=== PATIENT | female | born 1935 | race Caucasian/White ===

== ENCOUNTER → 2016-12-30 | Outpatient (CLI) | payer OTHER ==
[~2016-12-30] MED LIST: ASPCH81X PO; CHOL100010 PO; FSM70 PO; GALA12TA PO; MEMA10TA PO; OMEP20CA9 PO; SERT1TAB71 PO; SERT25TA PO; TYL325X PO
[2016-12-30 08:18] LABS: BASO % 0.7 %; BASO ABS # 0.04 K/uL (0-0.2); COMPLETE YES; EOS % 3.6 %; HEMATOCRIT 36.7 % (37-47); IG% 0.2 %; LYMPH % 34.3 %; LYMPH ABS # 1.89 K/uL (1.2-3.4); MEAN CORPUSCULAR HEMOGLOBIN 29.3 pg (25-34); MEAN CORPUSCULAR HGB CONC 33.2 g/dl (32-36); MEAN PLATELET VOLUME 9.4 fL (7.4-10.4); MONO % 10.3 %; NEUT % 50.9 %; PLATELET COUNT 192 K/uL (130-400); RED BLOOD COUNT 4.17 M/uL (4.2-5.4); WHITE BLOOD COUNT 5.51 K/uL (4.8-10.8)
[2016-12-30 08:27] LABS: BLOOD UREA NITROGEN 21 mg/dl (7-18); BUN/CREATININE RATIO 24.7 (10-20); CALCIUM 8.8 mg/dl (8.5-10.1); CARBON DIOXIDE 29 mmol/L (21-32); CHLORIDE 109 mmol/L (98-107); CREATININE 0.85 mg/dl (0.60-1.20); GLUCOSE 91 mg/dl (70-99); POTASSIUM 3.6 mmol/L (3.5-5.1); SODIUM 144 mmol/L (136-145)
[2016-12-30 08:38] LABS: ALB/GLOB RATIO 0.9 (0.9-2); ALKALINE PHOSPHATASE 105 U/L (45-117); ALT/SGPT 16 U/L (12-78); AST/SGOT 13 U/L (15-37); CHOLESTEROL 149 mg/dl (0-200); CHOLESTEROL/HDL RATIO 2.1; HDL CHOLESTEROL 70 mg/dl; LDL CHOLESTEROL CALCULATED 68 mg/dl; TRIGLYCERIDES 56 mg/dl (0-150); VERY LOW DENSITY LIPOPROT CALC 11 mg/dl
== END | disposition home or self-care (01) ==
LOC: C.LABWYN 08:04
PROVIDERS: ATTEND Internal Medicine Pulmonary Disease
DX: M15.9 Polyosteoarthritis, unspecified (principal)

== ENCOUNTER 2017-01-30 14:50 | Emergency (ER) | payer OTHER ==
[~2017-01-30] VITALS: Ht 154.9 cm; Wt 60.6 kg
[2017-01-30 14:55] VITALS: TEMP 36.5; Ht 154.9 cm; Wt 60.6 kg
[2017-01-30] MEDS ORDERED: ALEN70TA4 PO (15:24)
--- NOTE | 2017-01-30 15:28 | EMERGENCY ROOM VISIT NOTE ---
History Report prepared by Louise: Jarad Roy Under the Supervision of: Graham StevensO. First contact with patient: 15:10 Chief Complaint: OTHER COMPLAINT Stated Complaint: SENT BY JASON JULISSA,UTERUS DROPPED History of Present Illness The patient is a 81 year old female who presents to the Emergency Room with complaints of a possible prolapsed uterus occurring approximately around 45 minutes prior to arrival. The patient is not complaining of any abdominal pain, though she is having some lower back pain. The patient has never had anything like this before, and she has a history of dementia. She has not had a hysterectomy. The patient's family states that the patient has not recently seen any SCIENCE AND OPERATIONS OFFICER doctor. The patient's son additionally states that the patient "digs" at herself and is wondering if she did anything to pull it out. Source of History: patient, family Onset: 45 minutes prior to arrival Position: other (vagina) Quality: other (uterus prolapse) Timing: other (possible) Associated Symptoms: + back pain, No abdominal pain Review of Systems See HPI for pertinent positives & negatives. A total of 6 systems reviewed and were otherwise negative. Past Medical & Surgical Medical Problems: (1) Arthritis of elbow, left (2) HTN (hypertension) Family History FH: heart disease Hypertension Social History Smoking Status: Never Smoker Alcohol Use: occasionally Drug Use: none Marital Status: Housing Status: lives alone Occupation Status: retired Current/Historical Medications Scheduled Alendronate Sodium (Fosamax), 70 MG PO WK Aspirin (Aspirin Ec), 81 MG PO DAILY Celecoxib (Celebrex), 100 MG PO BID Cholecalciferol (Vitamin D), 1,000 UNITS PO DAILY Donepezil HCl (Donepezil HCl), 5 MG PO PM Memantine (Namenda), 10 MG PO BID Omeprazole (Prilosec), 20 MG PO DAILY Sertraline (Zoloft), 25 MG PO PM Sertraline (Zoloft), 50 MG PO PM Scheduled PRN Acetaminophen Tab (Tylenol), 650 MG PO Q4 PRN for Pain or Fever Hydrocortisone (Rectal) (Hydrocortisone), 1 APPLN TOP BID PRN for rash Polyethylene Glycol 3350 (Miralax), 17 GM PO DAILY PRN for Constipation Allergies Coded Allergies: No Known Allergies (Verified , 12/31/12) Physical Exam Vital Signs Date Time Temp Pulse Resp B/P (MAP) Pulse Ox O2 Delivery O2 Flow Rate FiO2 01/30/17 17:46 68 18 128/68 95 01/30/17 17:15 68 18 128/65 95 Room Air 01/30/17 14:55 36.5 64 20 120/87 99 Room Air Physical Exam GENERAL: Patient is awake, alert, and in no acute distress. Patient is resting comfortably and showing no signs of anxiety EYES: The conjunctivae are clear. The pupils are round and reactive. EARS, NOSE, MOUTH AND THROAT: The nose is without any evidence of any deformity. Mucous membranes are moist tongue is midline NECK: The neck is nontender and supple. RESPIRATORY: Normal respiratory effort is noted there is no evidence of wheezing rhonchi or rales CARDIOVASCULAR: Regular rate and rhythm noted there no murmurs rubs or gallops normal S1 normal S2 GASTROINTESTINAL: The abdomen is soft. Bowel sounds are present in all quadrants. Abdomen is nontender : External genitalia are normal in appearance. No prolapse noted. On digital exam, slight cystocele, no definite prolapsed uterus noted. MUSCULOSKELETAL/EXTREMITIES: There is no evidence of gross deformity full range of motion is noted in the hips and shoulders SKIN: There is no obvious evidence of any rash. There are no petechiae, pallor or cyanosis noted. NEUROLOGIC: Patient is at baseline according to family members. Medical Decision & Procedures ED Course 1510: The patient was evaluated in room C11. A complete history and physical examination were performed. 1612: I discussed the patient's case with Dr. Hardy, SCIENCE AND OPERATIONS OFFICER, and she recommends outpatient follow up. 1625: Upon reevaluation, the patient is doing well. I discussed the results and treatment plan with her and her family. They verbalized agreement of the treatment plan. She was discharged home. Medical Decision Nursing notes reviewed. Additional history is obtained from the patient's family members. The patient is a 81-year-old female who presented to the emergency department with family members for an evaluation of possible vaginal or uterine prolapse. The patient lives in a residential and has a history of dementia. On physical exam she may have a small cystocele but no definite prolapse was noted. I discussed his case with the on-call SCIENCE AND OPERATIONS OFFICER physician. They've agreed to evaluate the patient in the office for further management and disposition. I discussed this plan with the family members and they were agreeable. They were encouraged to send the patient back to the emergency department if symptoms change worsen or the need arises. There was also some concern about the possibility of foreign body. To the best of my ability I could not appreciate a foreign body. Medication Reconcilliation Current Medication List: was personally reviewed by me Blood Pressure Screening Patient's blood pressure: Normal blood pressure Consults Time Called: 1542 Consulting Physician: Dr. Hardy, SCIENCE AND OPERATIONS OFFICER Returned Call: 1612 I discussed the patient's case with Dr. Hardy, SCIENCE AND OPERATIONS OFFICER, and she recommends outpatient follow up. Impression Primary Impression: Cystocele Scribe Attestation The scribe's documentation has been prepared under my direction and personally reviewed by me in its entirety. I confirm that the note above accurately reflects all work, treatment, procedures, and medical decision making performed by me. Departure Information Dispostion Home / Self-Care Referrals [facility] (PCP) Forms HOME CARE DOCUMENTATION FORM, IMPORTANT VISIT INFORMATION, WORK / SCHOOL INSTRUCTIONS Patient Instructions Cystocele, My [facility] Additional Instructions Follow-up with the SCIENCE AND OPERATIONS OFFICER doctor as scheduled. Problem Qualifiers Primary Impression: Cystocele Cystocele location: midline Qualified Codes: N81.11 - Cystocele, midline
[2017-01-30] MEDS ORDERED: ARC5 PO (15:29)
[2017-01-30] MEDS ORDERED: SERT50TA PO (15:29)
[2017-01-30] MEDS ORDERED: NMN10 PO (15:29)
[2017-01-30] MEDS ORDERED: PRLSR20 PO (15:29)
[2017-01-30] MEDS ORDERED: SERT25TA PO (15:29)
[2017-01-30] MEDS ORDERED: CHOL100010 PO (15:29)
[2017-01-30] MEDS ORDERED: ASPI81TA28 PO (15:29)
[2017-01-30] MEDS ORDERED: POLY335019 PO (15:33)
[2017-01-30] MEDS ORDERED: ACET325T96 PO (15:33)
[2017-01-30] MEDS ORDERED: HYDR-4956 TOP (15:33)
[2017-01-30] MEDS ORDERED: CELE100C PO (15:33)
[2017-01-30 17:46] VITALS: BP 128/68; PULSE 68; O2SAT 95
== END 2017-01-30 17:47 | disposition home or self-care (01) ==
LOC: C.EDB 14:51 → C.EDC 17:47
DX: N81.11 Cystocele, midline (principal); I10 Essential (primary) hypertension; Z82.49 Family history of ischemic heart disease and other diseases of the circulatory system; Z79.82 Long term (current) use of aspirin

== ENCOUNTER 2017-03-08 20:15 | Inpatient (IN) | payer OTHER ==
[~2017-03-08] VITALS: Ht 157.5 cm; Wt 60.7 kg
[~2017-03-08 20:15] MED LIST changes: +ACET325T96 PO; +ALEN70TA4 PO; +ARC5 PO; -ASPCH81X PO; +ASPI81TA28 PO; +CELE100C PO; -FSM70 PO; -GALA12TA PO; +HYDR-4956 TOP; -MEMA10TA PO; +NMN10 PO; -OMEP20CA9 PO; +POLY335019 PO; +PRLSR20 PO; -SERT1TAB71 PO; +SERT50TA PO; -TYL325X PO
[2017-03-08] MEDS ORDERED: SERT-234 PO (20:43)
[2017-03-08] MEDS ORDERED: ACETAMINOPHEN 325 MG SUPP PR STA (20:45)
[2017-03-08] MEDS ORDERED: SODIUM CHLORIDE 0.9% 1000ML 1,000 ML IV STA (20:45)
--- NOTE | 2017-03-08 20:51 | EMERGENCY ROOM VISIT NOTE ---
History Report prepared by Louise: Melisa Guzman Under the Supervision of: Dr. Fern Felipe D.O. First contact with patient: 20:30 Chief Complaint: OTHER COMPLAINT Stated Complaint: NOT EATING,TWITCHING,UNSTABLE WALKING,NONRESPONSIV History of Present Illness The patient is a 81 year old female who presents to the Emergency Room with complaints of generalized illness beginning this morning. Per son, the patient has stage five dementia. The patient was seen in the ED three weeks ago for a prolapsed uterus and bladder. The patient followed up with a PCP who put a pessary in. The patient soon after pulled the pessary out which was replaced again easily. The patient lives in a multimedia technician care living facility. The facility called the patient's son today and told him the patient was not acting normally. Per son, the patient was not eating, coughing, and has been shaking which is not baseline for her. The patient is unable to control her bowels or bladder but is able to alert someone to take her to the bathroom. Per son, the patient urinated on herself prior to arrival which is not normal for her. He notes that her urine also smelled strange. History limited secondary to the patient's dementia. Source of History: family History Limited By: dementia Onset: this morning Position: other (generalized) Quality: other (illness) Review of Systems ROS limited secondary to patient's dementia. Past Medical & Surgical Medical Problems: (1) Altered mental status (2) Arthritis of elbow, left (3) Fever (4) HTN (hypertension) (5) Sepsis (6) Urinary tract infection Family History FH: heart disease Hypertension Social History Smoking Status: Never Smoker Alcohol Use: occasionally Drug Use: none Marital Status: Housing Status: lives alone Occupation Status: retired Current/Historical Medications Scheduled Alendronate Sodium (Fosamax), 70 MG PO WK Aspirin (Aspirin Ec), 81 MG PO DAILY Celecoxib (Celebrex), 100 MG PO BID Cholecalciferol (Vitamin D), 1,000 UNITS PO DAILY Donepezil HCl (Donepezil HCl), 5 MG PO PM Memantine (Namenda), 10 MG PO BID Omeprazole (Prilosec), 20 MG PO DAILY Sertraline (Zoloft), 25 MG PO PM Sertraline (Zoloft), 100 MG PO DAILY Scheduled PRN Acetaminophen Tab (Tylenol), 650 MG PO Q4 PRN for Pain or Fever Hydrocortisone (Rectal) (Hydrocortisone), 1 APPLN TOP BID PRN for rash Polyethylene Glycol 3350 (Miralax), 17 GM PO DAILY PRN for Constipation Allergies Coded Allergies: Oxycodone (Unverified Adverse Reaction, Severe, CONFUSION, 03/08/17) Physical Exam Vital Signs Date Time Temp Pulse Resp B/P (MAP) Pulse Ox O2 Delivery O2 Flow Rate FiO2 03/08/17 22:52 36.7 92 16 101/70 98 Room Air 03/08/17 21:24 98 Room Air 03/08/17 20:38 129/59 03/08/17 20:25 38.7 117 18 95 Room Air Physical Exam GENERAL: alert, frail, elderly appearing, confused, warm to touch. EYE EXAM: normal conjunctiva, PERRL and EOM's grossly intact OROPHARYNX: no exudate, no erythema, lips, buccal mucosa, and tongue normal and mucous membranes are moist NECK: supple, no nuchal rigidity, no adenopathy, non-tender LUNGS: Diminished breath sound bilaterally. HEART: Tachycardiac, no murmurs, S1 normal and S2 normal ABDOMEN: generalized discomfort with palpation, no rebound or guarding. BACK: Back is symmetrical on inspection and there is no deformity, no midline tenderness, no CVA tenderness. SKIN: no rashes and no bruising UPPER EXTREMITIES: upper extremities are grossly normal. LOWER EXTREMITIES: No pitting edema. NEURO EXAM: Moving all extremities, alert demented, unable to cooperate for further testing. Medical Decision & Procedures ER Provider Diagnostic Interpretation: Radiology results have been interpreted by the radiologist and reviewed by me. CT SCAN OF THE BRAIN WITHOUT IV CONTRAST FINDINGS: Brain parenchyma: There are age-related involutional changes noting mild subcortical and periventricular microangiopathic change. There is asymmetric atrophy of the temporal lobes. There is no hemorrhage, mass effect, or evidence of acute territorial ischemia by CT criteria. Thomas-white matter is preserved. No extra-axial fluid collection is seen. Ventricles, sulci, cisterns: Prominent secondary to involutional change. Cavum septum pellucidum is incidentally noted. Intracranial vasculature: There is atherosclerotic calcification of the cavernous carotid arteries. Calvarium: Unremarkable. Sinuses and mastoids: The visualized paranasal sinuses are clear. The mastoid air cells are well pneumatized. Orbits: The bony orbits are grossly intact. There are bilateral ocular lens implants. IMPRESSION: 1. Significantly motion compromised examination. 2. Senescent changes as above with no evidence of hemorrhage, mass effect, or acute territorial ischemia by CT criteria. Electronically signed by: Herbert Ramirez M.D. AP CHEST WITH ABDOMINAL SERIES FINDINGS: 2 AP chest radiographs are compared to study dated 01/18/2015. The examination is degraded by patient rotation and by the patient's head obscuring the apices. The heart is top normal for projection and there is atherosclerotic calcification of the thoracic aorta. There are low lung volumes. Patchy airspace consolidation is seen in the left lower lung. No large pleural effusion or pneumothorax is identified. The skeletal structures are osteopenic. Advanced degenerative change and scoliosis is identified in the thoracolumbar spine. Advanced arthritic change is also seen in the shoulders. Supine and erect abdominal radiographs are correlated with abdominal CT dated 02/22/2012. Cholecystectomy clips are noted in the right upper quadrant. There is a nonobstructed abdominal bowel gas pattern. Moderate colonic fecal retention is noted. There is excreted IV contrast the bladder. No evidence of intraperitoneal free air is seen. Atherosclerotic calcification is noted in the abdominal aorta. There are no abnormal abdominal calcifications. There is advanced lumbosacral spondylosis and scoliosis. The lumbosacral spine and bony pelvis are grossly intact. IMPRESSION: 1. Low lung volumes. 2. Patchy airspace consolidation is seen at the left lung base. Correlate clinically for evidence of pneumonia/aspiration pneumonitis. Radiographic follow-up to resolution is recommended. 3. Nonobstructed abdominal bowel gas pattern. Electronically signed by: Herbert Ramirez M.D. Laboratory Results 03/08/17 21:12 Red Blood Count 4.03, Mean Corpuscular Volume 90.6, Mean Corpuscular Hemoglobin 30.0, Mean Corpuscular Hemoglobin Concent 33.2, Mean Platelet Volume 9.6, Neutrophils (%) (Auto) 82.3, Lymphocytes (%) (Auto) 6.9, Monocytes (%) (Auto) 10.4, Eosinophils (%) (Auto) 0.1, Basophils (%) (Auto) 0.0, Neutrophils # (Auto ) 9.13, Lymphocytes # (Auto) 0.76, Monocytes # (Auto) 1.15, Eosinophils # (Auto ) 0.01, Basophils # (Auto) 0.00 03/08/17 21:12 Test 03/08/17 21:04 03/08/17 21:12 03/08/17 21:20 Influenza Type A Antigen Neg for Influ A (NEG) Influenza Type B Antigen Neg for Influ B (NEG) White Blood Count 11.08 K/uL (4.8-10.8) Red Blood Count 4.03 M/uL (4.2-5.4) Hemoglobin 12.1 g/dL (12.0-16.0) Hematocrit 36.5 % (37-47) Mean Corpuscular Volume 90.6 fL (80-100) Mean Corpuscular Hemoglobin 30.0 pg (25-34) Mean Corpuscular Hemoglobin Concent 33.2 g/dl (32-36) Platelet Count 216 K/uL (130-400) Mean Platelet Volume 9.6 fL (7.4-10.4) Neutrophils (%) (Auto) 82.3 % Lymphocytes (%) (Auto) 6.9 % Monocytes (%) (Auto) 10.4 % Eosinophils (%) (Auto) 0.1 % Basophils (%) (Auto) 0.0 % Neutrophils # (Auto) 9.13 K/uL (1.4-6.5) Lymphocytes # (Auto) 0.76 K/uL (1.2-3.4) Monocytes # (Auto) 1.15 K/uL (0.11-0.59) Eosinophils # (Auto) 0.01 K/uL (0-0.5) Basophils # (Auto) 0.00 K/uL (0-0.2) RDW Standard Deviation 48.2 fL (36.4-46.3) RDW Coefficient of Variation 14.6 % (11.5-14.5) Immature Granulocyte % (Auto) 0.3 % Immature Granulocyte # (Auto) 0.03 K/uL (0.00-0.02) Anion Gap 8.0 mmol/L (3-11) Estimated GFR () 55.3 Estimated GFR (Non- 47.7 BUN/Creatinine Ratio 18.8 (10-20) Lactic Acid Level 1.1 mmol/L (0.4-2.0) Calcium Level 9.0 mg/dl (8.5-10.1) Total Bilirubin 0.6 mg/dl (0.2-1) Direct Bilirubin 0.2 mg/dl (0-0.2) Aspartate Amino Transf (AST/SGOT) 13 U/L (15-37) Alanine Aminotransferase (ALT/SGPT) 15 U/L (12-78) Alkaline Phosphatase 115 U/L (45-117) Total Protein 7.4 gm/dl (6.4-8.2) Albumin 3.2 gm/dl (3.4-5.0) Urine Color YELLOW Urine Appearance CLOUDY (CLEAR) Urine pH 6.5 (4.5-7.5) Urine Specific [place] 1.014 (1.000-1.030) Urine Protein 1+ (NEG) Urine Glucose (UA) NEG (NEG) Urine Ketones NEG (NEG) Urine Occult Blood 1+ (NEG) Urine Nitrite POS (NEG) Urine Bilirubin NEG (NEG) Urine Urobilinogen POS (NEG) Urine Leukocyte Esterase LARGE (NEG) Urine WBC (Auto) >30 /hpf (0-5) Urine RBC (Auto) 0-4 /hpf (0-4) Urine Hyaline Casts (Auto) 1-5 /lpf (0-5) Urine Epithelial Cells (Auto) 0-5 /lpf (0-5) Urine Bacteria (Auto) 2+ (NEG) Laboratory results per my review. Medications Administered Medications (Trade) Dose Ordered Sig/Bryan Route Start Time Stop Time Status Last Admin Dose Admin Sodium Chloride 1,000 ml @ 999 mls/hr Q1H1M STAT IV 03/08/17 20:45 03/08/17 21:45 VA 03/08/17 20:45 999 MLS/HR Acetaminophen (Tylenol Supp) 975 mg NOW STAT TN 03/08/17 20:45 03/08/17 20:48 DC 03/08/17 20:45 975 MG Vancomycin HCl 1500 mg/Sodium Chloride 530 ml @ 200 mls/hr ONE STAT IV 03/08/17 21:52 03/09/17 01:05 VA 03/08/17 23:35 200 MLS/HR Cefepime HCl 1000 mg/Dextrose 111 ml @ 200 mls/hr NOW STAT IV 03/08/17 21:52 03/08/17 22:25 DC 03/08/17 23:33 200 MLS/HR Miscellaneous Information (Patient'S Height And/Or Weight Needed) 1 ea NOW STAT N/A 03/08/17 21:59 03/08/17 22:00 DC 03/08/17 21:59 1 ED Course 2031: The patient was evaluated in room B9. A complete history and physical exam was performed. 2044: Ordered Acetaminophen 975 mg TN, Sodium Chloride 1000 ml @ 999 mls/hr IV. 2151: Ordered Cefepime HCl 1000 mg/Dextrose 111 ml @ 200 mls/hr IV, Vancomycin HCl 1500 mg/Sodium Chloride 530 ml @ 200 mls/hr. 2208: I updated the patient's son on her test results. 2321:I reviewed the patient's case with Dr. Aguirre. He will evaluate the patient for further management. Medical Decision Differential diagnosis: Etiologies such as metabolic, infection, hypoglycemia, electrolyte abnormalities , cardiac sources, intracerebral event, toxicologic, neurologic, viral syndrome , otitis, pharyngitis, pneumonia, influenza, meningitis, urinary tract infection , sepsis, bacteremia, as well as others were entertained. History provided by patient sinus patient with advanced dementia. Patient found to have both urinary tract infection as well as pneumonia likely contributing to worsening mental status than baseline. Patient treated initially for sepsis, IV fluids and broad-spectrum antibiotics started in addition to cultures and labs. Patient hemodynamically stable, heart rate improved. Patient's and made aware of all results and was agreeable with plan for additional evaluation and admission. Medication Reconcilliation Current Medication List: was personally reviewed by ut Blood Pressure Screening Patient's blood pressure: Normal blood pressure Blood pressure disposition: Referred to PCP (evaluated by hospitalist) Consults Time Called: 2319 Consulting Physician: Dr. Aguirre Returned Call: 2321 I reviewed the patient's case with Dr. Aguirre. He will evaluate the patient for further management. Impression Primary Impression: Sepsis Additional Impressions: Altered mental status UTI (urinary tract infection) Pneumonia Critical Care I have personally spent greater than 35 minutes of critical care time in the direct management of this patient. This includes bedside care, interpretation of diagnostic studies, and testing, discussion with consultants, patient, and family members, and other required patient management activities. This 35 minutes is in excess of all separately billable procedures. Scribe Attestation The scribe's documentation has been prepared under my direction and personally reviewed by me in its entirety. I confirm that the note above accurately reflects all work, treatment, procedures, and medical decision making performed by me. Departure Information Dispostion Being Evaluated By Hospitalist Referrals JASON TUCKER (PCP) Patient Instructions My [facility] Problem Qualifiers Primary Impression: Sepsis Sepsis type: sepsis due to unspecified organism Qualified Codes: A41.9 - Sepsis, unspecified organism Additional Impressions: Altered mental status Altered mental status type: unspecified Qualified Codes: R41.82 - Altered mental status, unspecified UTI (urinary tract infection) Urinary tract infection type: acute cystitis Hematuria presence: with hematuria Qualified Codes: N30.01 - Acute cystitis with hematuria Pneumonia Pneumonia type: due to unspecified organism Laterality: left Lung location : lower lobe of lung Qualified Codes: J18.1 - Lobar pneumonia, unspecified organism
[2017-03-08 21:33] LABS: COMPLETE YES; EOS % 0.1 %; HEMATOCRIT 36.5 % (37-47); IG% 0.3 %; LYMPH % 6.9 %; LYMPH ABS # 0.76 K/uL (1.2-3.4); MEAN CELL VOLUME 90.6 fL (80-100); MEAN CORPUSCULAR HGB CONC 33.2 g/dl (32-36); MEAN PLATELET VOLUME 9.6 fL (7.4-10.4); MONO % 10.4 %; NEUT % 82.3 %; PLATELET COUNT 216 K/uL (130-400); RED BLOOD COUNT 4.03 M/uL (4.2-5.4); WHITE BLOOD COUNT 11.08 K/uL (4.8-10.8)
[2017-03-08 21:39] LABS: URINE APPEARANCE CLOUDY (CLEAR); URINE BILIRUBIN NEG (NEG); URINE COLOR YELLOW; URINE EPITHELIAL CELL AUTO 0-5 /lpf (0-5); URINE NITRITE POS (NEG); URINE PH 6.5 (4.5-7.5); URINE SPECIFIC GRAVITY 1.014 (1.000-1.030); UROBILINOGEN POS (NEG)
[2017-03-08] MEDS ORDERED: CEFEPIME IV 1,000 MG in DEXTROSE 5% 100ML 100 ML IV STA (21:52)
[2017-03-08] MEDS ORDERED: VANCOMYCIN INJ 1,500 MG in SODIUM CHLORIDE 0.9% 500ML 500 ML IV STA (21:52)
[2017-03-08 21:53] LABS: ALKALINE PHOSPHATASE 115 U/L (45-117); ALT/SGPT 15 U/L (12-78); AST/SGOT 13 U/L (15-37); BLOOD UREA NITROGEN 21 mg/dl (7-18); BUN/CREATININE RATIO 18.8 (10-20); CARBON DIOXIDE 26 mmol/L (21-32); CHLORIDE 106 mmol/L (98-107); GLUCOSE 152 mg/dl (70-99); POTASSIUM 3.8 mmol/L (3.5-5.1); SODIUM 140 mmol/L (136-145)
[2017-03-08 21:58] LABS: MANUAL MICROSCOPIC REQUIRED? NO; REVIEW REQ? NO
[2017-03-08] MEDS ORDERED: PATIENT'S HEIGHT AND/OR WEIGHT NEEDED STA (21:59)
--- NOTE | 2017-03-08 22:47 | DIAGNOSTIC IMAGING REPORT ---
CT SCAN OF THE BRAIN WITHOUT IV CONTRAST CLINICAL HISTORY: Change in mental status. COMPARISON STUDY: CT of the brain dated 01/18/2015. TECHNIQUE: Unenhanced axial CT scan of the brain is performed from the vertex to the skull base. The examination is significantly compromised by motion artifact. The patient was scanned 3 times in an effort to improve image quality. CT DOSE: 1721.48 mGy.cm FINDINGS: Brain parenchyma: There are age-related involutional changes noting mild subcortical and periventricular microangiopathic change. There is asymmetric atrophy of the temporal lobes. There is no hemorrhage, mass effect, or evidence of acute territorial ischemia by CT criteria. Thomas-white matter is preserved. No extra-axial fluid collection is seen. Ventricles, sulci, cisterns: Prominent secondary to involutional change. Cavum septum pellucidum is incidentally noted. Intracranial vasculature: There is atherosclerotic calcification of the cavernous carotid arteries. Calvarium: Unremarkable. Sinuses and mastoids: The visualized paranasal sinuses are clear. The mastoid air cells are well pneumatized. Orbits: The bony orbits are grossly intact. There are bilateral ocular lens implants. IMPRESSION: 1. Significantly motion compromised examination. 2. Senescent changes as above with no evidence of hemorrhage, mass effect, or acute territorial ischemia by CT criteria. Electronically signed by: Herbert Ramirez M.D. 03/08/2017 10:46 PM Dictated Date/Time: 03/08/2017 10:43 PM
--- NOTE | 2017-03-08 22:54 | DIAGNOSTIC IMAGING REPORT ---
AP CHEST WITH ABDOMINAL SERIES CLINICAL HISTORY: Fever. Sepsis. FINDINGS: 2 AP chest radiographs are compared to study dated 01/18/2015. The examination is degraded by patient rotation and by the patient's head obscuring the apices. The heart is top normal for projection and there is atherosclerotic calcification of the thoracic aorta. There are low lung volumes. Patchy airspace consolidation is seen in the left lower lung. No large pleural effusion or pneumothorax is identified. The skeletal structures are osteopenic. Advanced degenerative change and scoliosis is identified in the thoracolumbar spine. Advanced arthritic change is also seen in the shoulders. Supine and erect abdominal radiographs are correlated with abdominal CT dated 02/22/2012. Cholecystectomy clips are noted in the right upper quadrant. There is a nonobstructed abdominal bowel gas pattern. Moderate colonic fecal retention is noted. There is excreted IV contrast the bladder. No evidence of intraperitoneal free air is seen. Atherosclerotic calcification is noted in the abdominal aorta. There are no abnormal abdominal calcifications. There is advanced lumbosacral spondylosis and scoliosis. The lumbosacral spine and bony pelvis are grossly intact. IMPRESSION: 1. Low lung volumes. 2. Patchy airspace consolidation is seen at the left lung base. Correlate clinically for evidence of pneumonia/aspiration pneumonitis. Radiographic follow-up to resolution is recommended. 3. Nonobstructed abdominal bowel gas pattern. Electronically signed by: Herbert Ramirez M.D. 03/08/2017 10:52 PM Dictated Date/Time: 03/08/2017 10:49 PM
[2017-03-08] MEDS ORDERED: VANCOMYCIN INJ 1,000 MG in SODIUM CHLORIDE 0.9% 250ML 250 ML IV STA (23:46)
[2017-03-08] MEDS ORDERED: CONSULT PHARMACY STA (23:46)
--- NOTE | 2017-03-08 23:54 | History and Physical ---
History & Physical Date & Time of Service: Mar 08, 2017 at 23:54 Chief Complaint: Not Eating,Twitching,Unstable Walking,Nonresponsiv Primary Care Physician: Odin Richard M.D. History of Present Illness Source: family Rubia Cavazos is a 81 yo F with dementia, stage V, who resides at [facility] ( a personal care facility), who presents with fever, shaking, and altered mental status. History was obtained from the son, who reports his mom has overall declined in the last year or so. He reports that recently his Mom had issues with prolapse, and had a pessary placed by her Ob-ORGAN RECOV[employer] COORDINATOR Dr Jones, but then the pt reached in and took it out herself. It was replaced and currently presumably still remains inside. He reports she is often found digging at her skin / urinary / vaginal area. Earlier today, the personal fdc reported that she was acting unusual, and her arms were shaking around which was unusual. They recommended she come to the ED for evaluation. Currently, the pt reports feeling cold, does not answer any other questions, but is otherwise calm. Past Medical/Surgical History Medical Problems: (1) Arthritis of elbow, left Status: Chronic (2) HTN (hypertension) Status: Resolved Family History FH: heart disease Hypertension Social History Smoking Status: Never Smoker Drug Use: none Marital Status: Housing status: lives alone Occupational Status: retired Multi-Drug Resistant Organisms History of MDRO: No Allergies Coded Allergies: Oxycodone (Unverified Adverse Reaction, Severe, CONFUSION, 03/08/17) Home Medications Scheduled Alendronate Sodium (Fosamax), 70 MG PO WK Aspirin (Aspirin Ec), 81 MG PO DAILY Celecoxib (Celebrex), 100 MG PO BID Cholecalciferol (Vitamin D), 1,000 UNITS PO DAILY Donepezil HCl (Donepezil HCl), 5 MG PO PM Memantine (Namenda), 10 MG PO BID Omeprazole (Prilosec), 20 MG PO DAILY Sertraline (Zoloft), 25 MG PO PM Sertraline (Zoloft), 100 MG PO DAILY Scheduled PRN Acetaminophen Tab (Tylenol), 650 MG PO Q4 PRN for Pain or Fever Hydrocortisone (Rectal) (Hydrocortisone), 1 APPLN TOP BID PRN for rash Polyethylene Glycol 3350 (Miralax), 17 GM PO DAILY PRN for Constipation Review of Systems ROS unable to be obtained due to altered mental status. Physical Exam Vital Signs Date Time Temp Pulse Resp B/P (MAP) Pulse Ox O2 Delivery O2 Flow Rate FiO2 03/08/17 22:52 36.7 92 16 101/70 98 Room Air 03/08/17 21:24 98 Room Air 03/08/17 20:38 129/59 03/08/17 20:25 38.7 117 18 95 Room Air General Appearance: WD/WN, no apparent distress, + thin Head: normocephalic, atraumatic Eyes: normal inspection, PERRL ENT: hearing grossly normal Neck: supple, no JVD Respiratory/Chest: lungs clear, normal breath sounds, no respiratory distress Cardiovascular: regular rate, rhythm, no murmur, normal peripheral pulses Abdomen/GI: non tender, soft Back: normal inspection, no CVA tenderness, no muscle spasm Extremities/Musculoskelatal: normal inspection, no pedal edema Neurologic/Psych: + disoriented Skin: no rash Diagnostics Laboratory Results Results Past 24 Hours Test 03/08/17 21:04 03/08/17 21:12 03/08/17 21:20 Range/Units Influenza Type A Antigen Neg for Influ A NEG Influenza Type B Antigen Neg for Influ B NEG White Blood Count 11.08 4.8-10.8 K/uL Red Blood Count 4.03 4.2-5.4 M/uL Hemoglobin 12.1 12.0-16.0 g/dL Hematocrit 36.5 37-47 % Mean Corpuscular Volume 90.6 80-100 fL Mean Corpuscular Hemoglobin 30.0 25-34 pg Mean Corpuscular Hemoglobin Concent 33.2 32-36 g/dl Platelet Count 216 130-400 K/uL Mean Platelet Volume 9.6 7.4-10.4 fL Neutrophils (%) (Auto) 82.3 % Lymphocytes (%) (Auto) 6.9 % Monocytes (%) (Auto) 10.4 % Eosinophils (%) (Auto) 0.1 % Basophils (%) (Auto) 0.0 % Neutrophils # (Auto) 9.13 1.4-6.5 K/uL Lymphocytes # (Auto) 0.76 1.2-3.4 K/uL Monocytes # (Auto) 1.15 0.11-0.59 K/uL Eosinophils # (Auto) 0.01 0-0.5 K/uL Basophils # (Auto) 0.00 0-0.2 K/uL RDW Standard Deviation 48.2 36.4-46.3 fL RDW Coefficient of Variation 14.6 11.5-14.5 % Immature Granulocyte % (Auto) 0.3 % Immature Granulocyte # (Auto) 0.03 0.00-0.02 K/uL Sodium Level 140 136-145 mmol/L Potassium Level 3.8 3.5-5.1 mmol/L Chloride Level 106 98-107 mmol/L Carbon Dioxide Level 26 21-32 mmol/L Anion Gap 8.0 3-11 mmol/L Blood Urea Nitrogen 21 7-18 mg/dl Creatinine 1.10 0.60-1.20 mg/dl Estimated GFR () 55.3 Estimated GFR (Non- 47.7 BUN/Creatinine Ratio 18.8 10-20 Random Glucose 152 70-99 mg/dl Lactic Acid Level 1.1 0.4-2.0 mmol/L Calcium Level 9.0 8.5-10.1 mg/dl Total Bilirubin 0.6 0.2-1 mg/dl Direct Bilirubin 0.2 0-0.2 mg/dl Aspartate Amino Transf (AST/SGOT) 13 15-37 U/L Alanine Aminotransferase (ALT/SGPT) 15 12-78 U/L Alkaline Phosphatase 115 45-117 U/L Total Protein 7.4 6.4-8.2 gm/dl Albumin 3.2 3.4-5.0 gm/dl Urine Color YELLOW Urine Appearance CLOUDY CLEAR Urine pH 6.5 4.5-7.5 Urine Specific [place] 1.014 1.000-1.030 Urine Protein 1+ NEG Urine Glucose (UA) NEG NEG Urine Ketones NEG NEG Urine Occult Blood 1+ NEG Urine Nitrite POS NEG Urine Bilirubin NEG NEG Urine Urobilinogen POS NEG Urine Leukocyte Esterase LARGE NEG Urine WBC (Auto) >30 0-5 /hpf Urine RBC (Auto) 0-4 0-4 /hpf Urine Hyaline Casts (Auto) 1-5 0-5 /lpf Urine Epithelial Cells (Auto) 0-5 0-5 /lpf Urine Bacteria (Auto) 2+ NEG Microbiology Results 03/08/17 Blood Culture, Received Pending 03/08/17 Blood Culture, Received Pending 03/08/17 Urine Culture, Received Pending Diagnostic Radiology CT SCAN OF THE BRAIN WITHOUT IV CONTRAST FINDINGS: Brain parenchyma: There are age-related involutional changes noting mild subcortical and periventricular microangiopathic change. There is asymmetric atrophy of the temporal lobes. There is no hemorrhage, mass effect, or evidence of acute territorial ischemia by CT criteria. Thomas-white matter is preserved. No extra-axial fluid collection is seen. Ventricles, sulci, cisterns: Prominent secondary to involutional change. Cavum septum pellucidum is incidentally noted. Intracranial vasculature: There is atherosclerotic calcification of the cavernous carotid arteries. Calvarium: Unremarkable. Sinuses and mastoids: The visualized paranasal sinuses are clear. The mastoid air cells are well pneumatized. Orbits: The bony orbits are grossly intact. There are bilateral ocular lens implants. IMPRESSION: 1. Significantly motion compromised examination. 2. Senescent changes as above with no evidence of hemorrhage, mass effect, or acute territorial ischemia by CT criteria. Electronically signed by: Herbert Ramirez M.D. AP CHEST WITH ABDOMINAL SERIES FINDINGS: 2 AP chest radiographs are compared to study dated 01/18/2015. The examination is degraded by patient rotation and by the patient's head obscuring the apices. The heart is top normal for projection and there is atherosclerotic calcification of the thoracic aorta. There are low lung volumes. Patchy airspace consolidation is seen in the left lower lung. No large pleural effusion or pneumothorax is identified. The skeletal structures are osteopenic. Advanced degenerative change and scoliosis is identified in the thoracolumbar spine. Advanced arthritic change is also seen in the shoulders. Supine and erect abdominal radiographs are correlated with abdominal CT dated 02/22/2012. Cholecystectomy clips are noted in the right upper quadrant. There is a nonobstructed abdominal bowel gas pattern. Moderate colonic fecal retention is noted. There is excreted IV contrast the bladder. No evidence of intraperitoneal free air is seen. Atherosclerotic calcification is noted in the abdominal aorta. There are no abnormal abdominal calcifications. There is advanced lumbosacral spondylosis and scoliosis. The lumbosacral spine and bony pelvis are grossly intact. IMPRESSION: 1. Low lung volumes. 2. Patchy airspace consolidation is seen at the left lung base. Correlate clinically for evidence of pneumonia/aspiration pneumonitis. Radiographic follow-up to resolution is recommended. 3. Nonobstructed abdominal bowel gas pattern. EKG Poor data quality, interpretation may be adversely affected Normal sinus rhythm Possible Left atrial enlargement Anterior infarct (cited on or before 18-JAN-2015) Abnormal ECG When compared with ECG of 18-JAN-2015 09:26, Nonspecific T wave abnormality no longer evident in Lateral leads Impression Assessment and Plan 81 yo F w/dementia presents w/fever, tachycardia, altered mental status - likely UTI, though would consider other source (?from pessary) if sx do not improve. Urinary tract infection - Urine sent for culture - Received Vanc and Cefepime - Will continue with Rocephin daily until culture returns Dementia - Continue namenda / donepezil - If becomes agitated with provide a 1 to 1 Depression - Continue Zoloft VTE: Heparin q12h Dispo: Admit to Med/Surg Code status: DNR Resident Physician Supervision Note: Pt evaluated independently. I discussed the case with the resident and agree with the findings and plan as documented in the note. Any exceptions or clarifications are listed here: 81 y/o F Hx dementia, incontinence - recently removed a pessary of her own accord. Presenting with fever and altered mentation. UA is (+) and a CXR indicates she may have a LLL infiltrate - no pneumonia signs were reported OE Disoriented elderly female S1,2 tachy/reg Poor effort limits resp exam - lungs appear clear on shallow inspiration NT, ND, BS+ No CCE P: Initially placed on Cefepime and Vanc in ER as she qualified a diagnosis of sepsis. She currently appears stable - we will transition to Ceftriaxone pending culture results. She resides in assisted living - it is unclear if she can manage in this degree of care going forward as she has exhibited functional decline over the past year - would reassess when infection has been treated and can discuss with family following. Documented By: Bill White VTE Prophylaxis VTE Risk Assessment Done? Y/N: Yes Risk Level: Moderate Resident Tracking Resident Involvement: Resident Care Provided Care Provided: Adult Hospital Medicine
[2017-03-09] MEDS ORDERED: ONDANSETRON INJ 2 MG/ML 2 ML VIAL IV PRN
[2017-03-09] MEDS ORDERED: MAGNESIUM HYDROXIDE SUSP 30 ML UDC PO PRN
[2017-03-09] MEDS ORDERED: CEFEPIME IV 1,000 MG in DEXTROSE 5% 100ML 100 ML IV SCH ×2
[2017-03-09] MEDS ORDERED: ALUMINUM/MAGNESIUM/SIMETH (MAALOX MAX) 30 ML UDC PO PRN
[2017-03-09] MEDS ORDERED: POLYETHYLENE (MIRALAX) 17 GM PACK PO PRN ×2
[2017-03-09] MEDS ORDERED: HYDROCORTISONE HC 2.5% CRM 30GM TUBE EXT PRN
[2017-03-09] MEDS ORDERED: ACETAMINOPHEN 325 MG TAB PO PRN
[2017-03-09 01:03] VITALS: PULSE 84; O2SAT 95; Ht 157.5 cm; Wt 60.7 kg
[2017-03-09] MEDS: SODIUM CHLOR 0.45% + 20MEQ KCL 1,000 ML IV SCH ×2 (02:54→16:33)
[2017-03-09] MEDS ORDERED: INFLUENZA ADMINISTRATION CHARGE ONE (03:45)
[2017-03-09] MEDS ORDERED: INFLUENZA VACCINE HIGH DOSE 65+ 0.5 ML SYR IM. ONE (03:45)
[2017-03-09] MEDS ORDERED: PNEUMOCOCCAL POLYSACCHARIDES 25 MCG/0.5 ML VIAL/SYR IM. ONE (03:45)
[2017-03-09] MEDS ORDERED: PNEUMOCOCCAL ADMINISTRATION CHARGE ONE (03:45)
[2017-03-09 05:55] VITALS: BP 131/73; PULSE 118; TEMP 37.1
[2017-03-09] MEDS: CEFTRIAXONE SOD INJ 1 GM in DEXTROSE 5% ADD-VANTAGE 50ML 50 ML IV SCH (06:08)
[2017-03-09] MEDS ORDERED: ACETAMINOPHEN 650 MG SUPP PR PRN (06:15)
--- NOTE | 2017-03-09 07:04 | Family Medicine Progress Note ---
Progress Note Date of Service Mar 09, 2017. Subjective Pt evaluation today including: conversation w/ patient, physical exam, chart review, lab review Patient was seen and examined at bedside. According to the nurse who spoke with the family the patient is back at her baseline. There is no family in the room. Patient was examined while on room air. She responds with "Thank You" to all questions asked. ROS: Could not assess due to patients baseline medical condition. Objective Physical Exam General Appearance: WD/WN, no apparent distress Eyes: PERRL, EOMI Neck: supple Respiratory/Chest: chest non-tender, lungs clear, normal breath sounds, no respiratory distress, no accessory muscle use Cardiovascular: regular rate, rhythm, no edema, no gallop, no JVD, no murmur Abdomen: normal bowel sounds, non tender, soft, no organomegaly, no pulsatile mass Neurologic/Psychiatric: no motor/sensory deficits, alert, + pertinent finding ( patient does lift arms to command, she appears pleasant and in no acute distress , not oriented to time person and place for me. Per medical student patient was able to state her own name. ) Skin: no rash Assessment and Plan 81F w/ severe dementia to the point of unable to carry on a normal conversation at baseline presents w/fever, tachycardia, altered mental status. UA showed infection which is most likely the cause, we are treating with IV Rocephin. She has a pessary that she manually replaced. X-ray also showed a left lower lobe infiltrate. According to family patient is at her clinical baseline. Sepsis 2/2 Urinary tract infection vs Pulmonary Source - UA was showed WBC, nitrites. Chest X-ray was suspicious for LLL infiltrate. - Patient has a Pessary which could also be a source. - Urine growing Gram Negative Bacilli. - Blood cultures Pending. - Received Vanco and Cefepime in the ER, stopped Vanco. - Will continue with Rocephin daily until culture returns, Day #1 - 1/2 NSS + 20kCL IVF at 75mls per hour Dementia - Continue namenda 10mg daily and donepezil 5mg QPM. - If becomes agitated with provide a 1 to 1 Depression - Continue Zoloft 100mg daily. CAD - c/w ASA daily Dispo: Heparin SQ BID Dispo: Admit to Med/Surg, Awaiting Sensitivities, likely DC tomorrow. DNR Resident Physician Supervision Note: I was present with the resident during the history and exam. I discussed the case with the resident and agree with the findings and plan as documented in the note. Documented By: Raul Long Resident Involvement: Resident Care Provided Care Provided: Adult [facility] Medicine
[2017-03-09 07:17] VITALS: BP 115/70; PULSE 105; TEMP 36.3; O2SAT 94
[2017-03-09 09:30] VITALS: O2SAT 92
[2017-03-09] MEDS: SERTRALINE HCL 100 MG TAB PO SCH (09:36)
[2017-03-09] MEDS: PANTOprazole SOD 40 MG TAB PO SCH (09:36)
[2017-03-09] MEDS: CeleBREX 100 MG CAP PO SCH ×2 (09:36→21:15)
[2017-03-09] MEDS: MEMANTINE 10 MG TAB PO SCH ×2 (09:36→21:13)
[2017-03-09] MEDS: ASPIRIN 81 MG ECTAB PO SCH (09:36)
[2017-03-09] MEDS: HEPARIN SOD 5000 UNIT/0.5 ML CARP SQ SCH ×2 (09:44→21:26)
--- NOTE | 2017-03-09 12:31 | Medical Student: [facility] ---
Med Student Progress Note Date of Service Mar 09, 2017. Subjective Pt evaluation today including: physical exam, chart review, lab review pt is a 81 yo F with dementia who presented to the ED after being found with altered mental status and shaking of her hand at her personal care facility. She was found to have a UTI an chest x-ray showed some left lower lobe infiltrate. Patient was awake but somewhat disoriented and was unable to follow commands or communicate much. She was able to follow with her eyes. Early this morning her O2 dropped to the 80% so was given 2L oxygen via mask which brought it back up to 94% ROS difficult to obtain due to state of patient's state. Objective Vital Signs Date Time Temp Pulse Resp B/P (MAP) Pulse Ox O2 Delivery O2 Flow Rate FiO2 03/09/17 07:17 36.3 105 20 115/70 (85) 94 Oxymask 2.0 03/09/17 05:55 37.1 118 18 131/73 (92) 03/09/17 01:03 84 20 95 Room Air 03/09/17 00:12 68 16 129/70 93 Room Air 03/08/17 22:52 36.7 92 16 101/70 98 Room Air 03/08/17 21:24 98 Room Air 03/08/17 20:38 129/59 03/08/17 20:25 38.7 117 18 95 Room Air Physical Exam General Appearance: WD/WN Eyes: bilateral eyes normal inspection, bilateral eyes PERRL ENT: normal ENT inspection, hearing grossly normal Neck: supple, no adenopathy Respiratory/Chest: chest non-tender, lungs clear, normal breath sounds, no respiratory distress Cardiovascular: regular rate, rhythm, no edema, no gallop, no JVD, no murmur Abdomen: normal bowel sounds, non tender, soft Extremities: normal inspection, no pedal edema Neurologic/Psychiatric: + disoriented, + pertinent finding (had difficulty communication patient but she was aware that I was in the room. Responds to verbal stimuli.) Skin: normal color, warm/dry Lymphatic: no adenopathy Laboratory Results Last 24 Hours Test 03/08/17 21:04 03/08/17 21:12 03/08/17 21:20 03/09/17 05:47 Influenza Type A Antigen Neg for Influ A Influenza Type B Antigen Neg for Influ B White Blood Count 11.08 K/uL Red Blood Count 4.03 M/uL Hemoglobin 12.1 g/dL Hematocrit 36.5 % Mean Corpuscular Volume 90.6 fL Mean Corpuscular Hemoglobin 30.0 pg Mean Corpuscular Hemoglobin Concent 33.2 g/dl Platelet Count 216 K/uL Mean Platelet Volume 9.6 fL Neutrophils (%) (Auto) 82.3 % Lymphocytes (%) (Auto) 6.9 % Monocytes (%) (Auto) 10.4 % Eosinophils (%) (Auto) 0.1 % Basophils (%) (Auto) 0.0 % Neutrophils # (Auto) 9.13 K/uL Lymphocytes # (Auto) 0.76 K/uL Monocytes # (Auto) 1.15 K/uL Eosinophils # (Auto) 0.01 K/uL Basophils # (Auto) 0.00 K/uL RDW Standard Deviation 48.2 fL RDW Coefficient of Variation 14.6 % Immature Granulocyte % (Auto) 0.3 % Immature Granulocyte # (Auto) 0.03 K/uL Sodium Level 140 mmol/L Potassium Level 3.8 mmol/L Chloride Level 106 mmol/L Carbon Dioxide Level 26 mmol/L Anion Gap 8.0 mmol/L Blood Urea Nitrogen 21 mg/dl Creatinine 1.10 mg/dl Estimated GFR () 55.3 Estimated GFR (Non- 47.7 BUN/Creatinine Ratio 18.8 Random Glucose 152 mg/dl Lactic Acid Level 1.1 mmol/L Calcium Level 9.0 mg/dl Total Bilirubin 0.6 mg/dl Direct Bilirubin 0.2 mg/dl Aspartate Amino Transf (AST/SGOT) 13 U/L Alanine Aminotransferase (ALT/SGPT) 15 U/L Alkaline Phosphatase 115 U/L Total Protein 7.4 gm/dl Albumin 3.2 gm/dl Urine Color YELLOW Urine Appearance CLOUDY Urine pH 6.5 Urine Specific [place] 1.014 Urine Protein 1+ Urine Glucose (UA) NEG Urine Ketones NEG Urine Occult Blood 1+ Urine Nitrite POS Urine Bilirubin NEG Urine Urobilinogen POS Urine Leukocyte Esterase LARGE Urine WBC (Auto) >30 /hpf Urine RBC (Auto) 0-4 /hpf Urine Hyaline Casts (Auto) 1-5 /lpf Urine Epithelial Cells (Auto) 0-5 /lpf Urine Bacteria (Auto) 2+ Prothrombin Time 11.0 SECONDS Prothromb Time International Ratio 1.0 Assessment and Plan Assessment and Plan: Pt is a 81 yo F resident at a personal care facility who presents with shaking and change in her mental status. She was found to have a UTI and left lower lobe infiltrate on chest x-ray. Urine culture pending. She is currently on rocephin. I was unable to really communicate with the patient but she did not appear to be in distress or any pain. UTI - Culture pending - Received vancomycin and cefepime at ED. Now getting rocephin. Altered Mental Status - Likely due to UTI. Will continue to monitor. Left Lower Lobe infiltrate - Possible pneumonia, pt not complaining of respiratory symptoms or exhibiting signs. Will continue to monitor. Dementia - Continue namenda and donepazil Depression - Continue zoloft VTE prophylaxis - heparin q 12h
[2017-03-09 14:46] VITALS: BP 121/69; PULSE 80; TEMP 36.7; O2SAT 95
[2017-03-09 15:16] VITALS: BP 105/63; PULSE 90; O2SAT 94
[2017-03-09] MEDS ORDERED: LORAZEPAM 2 MG/ML 1 ML VIAL IV STA (20:31)
[2017-03-09] MEDS ORDERED: OLANZAPINE ZYDIS 5 MG ORALLY DIS. TAB PO STA (20:31)
--- NOTE | 2017-03-09 20:33 | Progress Note ---
Progress Note Date of Service Mar 09, 2017. Progress Note RESIDENT NIGHT COVERAGE NOTE Called that pt is very agitated, refusing all PO medications, trying to bite her IV out. Family requested medications to calm her down. Risks explained by RN. Will provide 1mg IV Ativan now, followed by 1.25mg OD Zyprexa. 0.5mg Ativan PRN anxiety also prescribed. 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
[2017-03-09] MEDS ORDERED: LORAZEPAM 2 MG/ML 1 ML VIAL IV PRN (20:45)
[2017-03-09] MEDS ORDERED: LORAZEPAM INJ 1 MG in SYRINGE 0.5 ML IV ONE (21:00)
[2017-03-09] MEDS ORDERED: SERTRALINE HCL 50 MG TAB PO SCH (21:00)
[2017-03-09] MEDS ORDERED: DONEPEZIL HCL 5 MG TAB PO SCH (21:00)
[2017-03-10] MEDS: CEFTRIAXONE SOD INJ 1 GM in DEXTROSE 5% ADD-VANTAGE 50ML 50 ML IV SCH (04:38)
[2017-03-10 06:06] LABS: HEMATOCRIT 34.6 % (37-47); MEAN CELL VOLUME 91.1 fL (80-100); MEAN CORPUSCULAR HEMOGLOBIN 29.5 pg (25-34); MEAN CORPUSCULAR HGB CONC 32.4 g/dl (32-36); MEAN PLATELET VOLUME 9.2 fL (7.4-10.4); PLATELET COUNT 177 K/uL (130-400); WHITE BLOOD COUNT 10.12 K/uL (4.8-10.8)
[2017-03-10 06:46] LABS: BUN/CREATININE RATIO 26.4 (10-20); CALCIUM 8.1 mg/dl (8.5-10.1); CREATININE 0.76 mg/dl (0.60-1.20); POTASSIUM 3.7 mmol/L (3.5-5.1)
[2017-03-10 07:47] VITALS: BP 126/72; PULSE 64; TEMP 36.3; O2SAT 93
[2017-03-10 08:00] VITALS: O2SAT 92
[2017-03-10] MEDS: MEMANTINE 10 MG TAB PO SCH (09:20)
[2017-03-10] MEDS: CeleBREX 100 MG CAP PO SCH (09:20)
[2017-03-10] MEDS: ASPIRIN 81 MG ECTAB PO SCH (09:20)
[2017-03-10] MEDS: PANTOprazole SOD 40 MG TAB PO SCH (09:21)
[2017-03-10] MEDS: SERTRALINE HCL 100 MG TAB PO SCH (09:21)
[2017-03-10] MEDS: HEPARIN SOD 5000 UNIT/0.5 ML CARP SQ SCH (09:33)
[2017-03-10] MEDS ORDERED: SULF800T23 PO (09:42)
--- NOTE | 2017-03-10 09:50 | Discharge Instructions ---
Discharge Instructions Date of Service Mar 10, 2017. Admission Reason for Admission: Ams, Fever, Sepsis, Uti Discharge Discharge Diagnosis / Problem: UTI Discharge Goals Goal(s): Decrease discomfort, Improve function, Increase independence, Improve disease control, Improve nutritional status, Learn about illness Activity Recommendations Activity Limitations: per Instructions/Follow-up section . Instructions / Follow-Up Instructions / Follow-Up You are being discharged on a medication called Ciprofloxacin Take this medication every 12 hours starting this evening (between 5pm and 9pm). Information on UTIs and Ciprofloxacin will be provided for you. Please follow up with your Primary Care Provider within one week. If you experience recurrent UTIs in the future your Primary Care Doctor or OBGYN may wish to either try daily preventative antibiotics for UTIs or remove the Pessary. Current Hospital Diet Patient's current hospital diet: AHA Diet (Heart Healthy) Discharge Diet Recommended Diet: Regular Diet Pending Studies Studies pending at discharge: yes List of pending studies: Final Blood Cultures - so far no growth over 24 hours. Laboratory Results Lipid Panel Test 12/30/16 06:10 Range/Units Triglycerides Level 56 0-150 mg/dl Cholesterol Level 149 0-200 mg/dl HDL Cholesterol 70 mg/dl Cholesterol/HDL Ratio 2.1 LDL Cholesterol, Calculated 68 mg/dl Medical Emergencies . Who to Call and When: Medical Emergencies: If at any time you feel your situation is an emergency, please call 911 immediately. . Non-Emergent Contact Non-Emergency issues call your: Primary Care Provider, Ice Cream Freezer Helper . . "Provider Documentation" section prepared by Grant Mcneal. . VTE Core Measure Inpt VTE Proph given/why not?: Unfractionated heparin SQ Resident Involvement: Resident Care Provided Care Provided: Adult Hospital Medicine
--- NOTE | 2017-03-10 10:10 | Discharge Summary ---
Discharge Summary Date of Service Mar 10, 2017. Discharge Summary Admission Date: Mar 08, 2017 at 23:52 Discharge Date: Mar 10, 2017 Discharge Disposition: Personal care Principal Diagnosis: UTI Procedures: CT SCAN OF THE BRAIN WITHOUT IV CONTRAST CLINICAL HISTORY: Change in mental status. COMPARISON STUDY: CT of the brain dated 01/18/2015. TECHNIQUE: Unenhanced axial CT scan of the brain is performed from the vertex to the skull base. The examination is significantly compromised by motion artifact. The patient was scanned 3 times in an effort to improve image quality. CT DOSE: 1721.48 mGy.cm FINDINGS: Brain parenchyma: There are age-related involutional changes noting mild subcortical and periventricular microangiopathic change. There is asymmetric atrophy of the temporal lobes. There is no hemorrhage, mass effect, or evidence of acute territorial ischemia by CT criteria. Thomas-white matter is preserved. No extra-axial fluid collection is seen. Ventricles, sulci, cisterns: Prominent secondary to involutional change. Cavum septum pellucidum is incidentally noted. Intracranial vasculature: There is atherosclerotic calcification of the cavernous carotid arteries. Calvarium: Unremarkable. Sinuses and mastoids: The visualized paranasal sinuses are clear. The mastoid air cells are well pneumatized. Orbits: The bony orbits are grossly intact. There are bilateral ocular lens implants. IMPRESSION: 1. Significantly motion compromised examination. 2. Senescent changes as above with no evidence of hemorrhage, mass effect, or acute territorial ischemia by CT criteria. [~ rep ct add3]] AP CHEST WITH ABDOMINAL SERIES CLINICAL HISTORY: Fever. Sepsis. FINDINGS: 2 AP chest radiographs are compared to study dated 01/18/2015. The examination is degraded by patient rotation and by the patient's head obscuring the apices. The heart is top normal for projection and there is atherosclerotic calcification of the thoracic aorta. There are low lung volumes. Patchy airspace consolidation is seen in the left lower lung. No large pleural effusion or pneumothorax is identified. The skeletal structures are osteopenic. Advanced degenerative change and scoliosis is identified in the thoracolumbar spine. Advanced arthritic change is also seen in the shoulders. Supine and erect abdominal radiographs are correlated with abdominal CT dated 02/22/2012. Cholecystectomy clips are noted in the right upper quadrant. There is a nonobstructed abdominal bowel gas pattern. Moderate colonic fecal retention is noted. There is excreted IV contrast the bladder. No evidence of intraperitoneal free air is seen. Atherosclerotic calcification is noted in the abdominal aorta. There are no abnormal abdominal calcifications. There is advanced lumbosacral spondylosis and scoliosis. The lumbosacral spine and bony pelvis are grossly intact. IMPRESSION: 1. Low lung volumes. 2. Patchy airspace consolidation is seen at the left lung base. Correlate clinically for evidence of pneumonia/aspiration pneumonitis. Radiographic follow-up to resolution is recommended. 3. Nonobstructed abdominal bowel gas pattern. Medication Reconciliation New Medications: Ciprofloxacin Hcl (Cipro) 500 Mg Tab 500 MG PO BID for 7 Days, #14 TAB Continued Medications: Acetaminophen Tab (Tylenol) 325 Mg Tab 650 MG PO Q4 PRN for Pain or Fever, TAB Alendronate Sodium (Fosamax) 70 Mg Tab 70 MG PO WK, TAB monday Aspirin (Aspirin Ec) 81 Mg Tab 81 MG PO DAILY Celecoxib (Celebrex) 100 Mg Cap 100 MG PO BID, CAP for joint swelling Cholecalciferol (Vitamin D) 1,000 Unit Tab 1000 UNITS PO DAILY Donepezil HCl (Donepezil HCl) 5 Mg Tab 5 MG PO PM Hydrocortisone (Rectal) (Hydrocortisone) 2.5 % Cre 1 APPLN TOP BID PRN for rash Memantine (Namenda) 10 Mg Tab 10 MG PO BID, TAB Omeprazole (Prilosec) 20 Mg Capcr 20 MG PO DAILY, CAP Polyethylene Glycol 3350 (Miralax) 1 Pow Pow 17 GM PO DAILY PRN for Constipation, #255 GM Sertraline (Zoloft) 25 Mg Tab 25 MG PO PM, TAB Sertraline (Zoloft) 100 Mg Tab 100 MG PO DAILY, TAB Discharge Exam Subjective Exam Patient was seen and examined at bedside with son in the room. Son had multiple questions regarding the Pessary causing the UTI and whether it needed to be removed. I advised that since this is the first instance of UTI since Pessary placement, it is unlikely that removal would be recommended. Follow up with PCP or OBGYN was recommended to the patient. Patient required sedation overnight with Olanzapine and Ativan. From the son it appears that the patient may have an element of sundowning at her home facility as well. Patient was examined while on room air. She is eating food and is very pleasant. ROS: Could not assess due to patients baseline medical condition. Physical Exam General Appearance: WD/WN, no apparent distress Eyes: PERRL, EOMI Neck: supple Respiratory/Chest: chest non-tender, lungs clear, normal breath sounds, no respiratory distress, no accessory muscle use Cardiovascular: regular rate, rhythm, no edema, no gallop, no JVD, no murmur Abdomen: normal bowel sounds, non tender, soft, no organomegaly, no pulsatile mass, no CVA tenderness. No suprapubic tenderness. Neurologic/Psychiatric: no motor/sensory deficits, alert, + pertinent finding ( patient is able to sit forward for lung exam, does lift arms to command, no acute distress, oriented to person, not time or place. Patient is able to feed herself without difficulty. ) Skin: no rash Hospital Course 81F w/ severe dementia to the point of unable to carry on a normal conversation at baseline presents w/fever, tachycardia, altered mental status. Urine grew E.coli that was sensitive to Bactrim, Macrobid and Ciprofloxacin. Admission diagnosis and treatment was metabolic encephalopathy 2/2 uti. We treated with IV Rocephin in the hospital and we are discharging on a 7 day course of Ciprofloxacin. Imaging revealed an X-ray with a LLL infiltrate - on exam patient had good air entry bilaterally and no cough. There is no clinical impression of pneumonia. On discharge VSS were stable (Afebrile and Tachycardia from admission had resolved x 24 hours). All home meds were continued on discharge. Patient's son had a question of whether the Pessary caused the UTI. Since this is the 1st UTI after Pessary placement three weeks ago, I would not recommend Pessary removal. If UTIs become recurrent patient may benefit for daily antibiotic prophylaxis. Patient's son also complained that the patient had a one year history of anal itching only after bowel movements. This was not observed in the hospital setting. Resident Physician Supervision Note: I interviewed and examined the patient. Discussed with the resident physician and agree with findings and plan as documented in the note. Documented By: Raul Long Total Time Spent: Greater than 30 minutes (34 minutes) This includes examination of the patient, discharge planning, medication reconciliation, and communication with other providers. Discharge Instructions Please refer to the electronic Patient Visit Report (Discharge Instructions) for additional information. Additional Copies To Odin Richard M.D.; Suzette Jones M.D. Resident Involvement: Resident Care Provided Care Provided: [facility]
[2017-03-10] MEDS ORDERED: CHLORASEPTIC 1.4% SOLN 180 ML BTL MT PRN (10:15)
--- NOTE | 2017-03-10 10:57 | Clinical Documentation Query ---
CLINICAL DOCUMENTATION QUERY Dr. HUNT, In your clinical opinion is this patient being managed for: ( x ) Metabolic encephalopathy ( ) Not Agree ( ) Other explanation of clinical findings (Please Explain) ( ) Unable to determine (Please Define) ( ) Need to Discuss The medical record reflects the following clinical findings, treatment, and risk factors. Clinical Indicators: 81 yo female presenting with an altered mental status beyond her baseline dementia. CT head without acute findings. Treatment:1L NSS bolus, then continuous, IV rocephin, IV vancomycin, IV cefepime, pending blood and urine cx, Risk Factors: UTI, preexisting dementia Please clarify and document your clinical opinion in the progress notes and discharge summary. Terms such as "probable", "suspected", "likely", "questionable", "possible", or "still to be ruled out" are acceptable. IF IN AGREEMENT, YOU MUST DOCUMENT ABOVE DIAGNOSTIC STATEMENT IN DAILY PROGRESS NOTES AND DISCHARGE SUMMARY. This document is not part of the patient's record. Thank You, Shital Catalan RN [phone]
--- NOTE | 2017-03-10 10:58 | Clinical Documentation Query ---
CLINICAL DOCUMENTATION QUERY Dr. SANCHEZ, In your clinical opinion is this patient being managed for: (x ) Metabolic encephalopathy ( ) Not Agree ( ) Other explanation of clinical findings (Please Explain) ( ) Unable to determine (Please Define) ( ) Need to Discuss The medical record reflects the following clinical findings, treatment, and risk factors. Clinical Indicators: 81 yo female presenting with an altered mental status beyond her baseline dementia. CT head without acute findings. Treatment:1L NSS bolus, then continuous, IV rocephin, IV vancomycin, IV cefepime, pending blood and urine cx, Risk Factors: UTI, preexisting dementia Please clarify and document your clinical opinion in the progress notes and discharge summary. Terms such as "probable", "suspected", "likely", "questionable", "possible", or "still to be ruled out" are acceptable. IF IN AGREEMENT, YOU MUST DOCUMENT ABOVE DIAGNOSTIC STATEMENT IN DAILY PROGRESS NOTES AND DISCHARGE SUMMARY. This document is not part of the patient's record. Thank You, Shital Catalan RN [phone]
[2017-03-10 12:51] VITALS: BP 126/72; PULSE 64; TEMP 36.3; O2SAT 92
[2017-03-10] MEDS ORDERED: CIPR-255 PO (15:01)
[2017-03-10 15:12] VITALS: BP 123/72; PULSE 89; TEMP 36.5; O2SAT 94
== END 2017-03-10 15:25 | disposition home or self-care (01) | DRG 872 ==
LOC: C.EDB 20:18 → C.4E 23:52 → ENRESERV 03-09 00:01
PROVIDERS: ADMIT Internal Medicine; ATTEND Internal Medicine
DX: A41.9 Sepsis, unspecified organism (principal); N39.0 Urinary tract infection, site not specified; I10 Essential (primary) hypertension; F03.90 Unspecified dementia, unspecified severity, without behavioral disturbance, psychotic disturbance, mood disturbance, and anxiety; F32.9 Major depressive disorder, single episode, unspecified; Z66 Do not resuscitate; Z79.82 Long term (current) use of aspirin; Z79.899 Other long term (current) drug therapy

== ENCOUNTER → 2017-04-04 | Outpatient (CLI) | payer OTHER ==
[~2017-04-04] MED LIST changes: +ACET-1693 PO; -ACET325T96 PO; +ASPCH81X PO; +CHOL1CAP57 PO; +CIPR-255 PO; +LOPE1LIQ15 PO; +ONDA4TAB54 PO; +SERT-234 PO; -SERT50TA PO
== END | disposition home or self-care (01) ==
LOC: C.LABSPEC 13:42
PROVIDERS: ATTEND Internal Medicine Pulmonary Disease
DX: R53.83 Other fatigue (principal)

== ENCOUNTER → 2017-05-31 | Outpatient (CLI) | payer OTHER ==
[~2017-05-31] MED LIST changes: -ASPCH81X PO; -CHOL1CAP57 PO; -LOPE1LIQ15 PO; -ONDA4TAB54 PO
== END | disposition home or self-care (01) ==
LOC: C.LABSPEC 13:13
PROVIDERS: ATTEND Obstetrics & Gynecology
DX: R39.9 Unspecified symptoms and signs involving the genitourinary system (principal)